=== PATIENT | male | born 1965 | race Asian ===

== ENCOUNTER 2020-06-08 00:07 | Emergency (ER) | payer OTHER ==
[~2020-06-08] VITALS: Ht 170.2 cm; Wt 82.1 kg
[2020-06-08 00:19] VITALS: BP 193/111; Ht 170.2 cm; Wt 82.1 kg
== END 2020-06-08 05:52 | disposition left against medical advice (07) ==
LOC: ED 00:07
DX: Z53.21 Procedure and treatment not carried out due to patient leaving prior to being seen by health care provider (principal); R03.0 Elevated blood-pressure reading, without diagnosis of hypertension